=== PATIENT | female | born 1995 | race Hispanic/Latino ===

== ENCOUNTER 2020-09-25 20:28 | Emergency (ER) | payer SELFPAY ==
[2020-09-25] MEDS ORDERED: diphenhydrAMINE 50 MG/ML VIAL ONE (21:32)
[2020-09-25] MEDS ORDERED: Famotidine/PF 20 mg/2ml Vial ONE (21:36)
== END 2020-09-25 23:00 | disposition home or self-care (01) ==
LOC: ERS 20:28
DX: T63.441A Toxic effect of venom of bees, accidental (unintentional), initial encounter (principal)
CPT/HCPCS: 96374; 96375; J1200; S0028

== ENCOUNTER 2020-10-06 22:08 | Emergency (ER) | payer SELFPAY ==
[2020-10-06] MEDS ORDERED: Acetaminophen 500 MG TAB ONE (23:47)
[2020-10-06] MEDS ORDERED: Ondansetron ODT 8 MG TAB ONE (23:47)
== END 2020-10-06 23:52 | disposition home or self-care (01) ==
LOC: ERS 22:08
DX: O99.891 Other specified diseases and conditions complicating pregnancy (principal); R51.9 Headache, unspecified; R11.0 Nausea
CPT/HCPCS: 99283; Q0162

== ENCOUNTER 2021-01-16 13:00 | Outpatient (CLI) | payer OTHER | END 2021-01-16 13:01 | disposition home or self-care (01) | LOC: BICULT 13:00 | PROVIDERS: ATTEND Family Medicine | DX: O32.2XX0 Maternal care for transverse and oblique lie, not applicable or unspecified (principal); O44.42 Low lying placenta NOS or without hemorrhage, second trimester; Z3A.22 22 weeks gestation of pregnancy | CPT/HCPCS: 76805 ==

== ENCOUNTER 2024-04-19 17:02 | Emergency (ER) | payer MEDICAID, SELFPAY ==
[2024-04-19] MEDS ORDERED: Ibuprofen 800 MG TAB ONE (17:26)
== END 2024-04-19 18:31 | disposition home or self-care (01) ==
LOC: ERS 17:02
DX: S60.132A Contusion of left middle finger with damage to nail, initial encounter (principal); S60.142A Contusion of left ring finger with damage to nail, initial encounter; X58.XXXA Exposure to other specified factors, initial encounter
CPT/HCPCS: 99283

== ENCOUNTER 2025-01-14 13:17 | Outpatient (CLI) | payer OTHER | END 2025-01-14 13:18 | disposition home or self-care (01) | LOC: ULT 13:17 | PROVIDERS: ATTEND Family Medicine | DX: O09.892 Supervision of other high risk pregnancies, second trimester (principal); O32.1XX0 Maternal care for breech presentation, not applicable or unspecified; Z3A.24 24 weeks gestation of pregnancy | CPT/HCPCS: 76805 ==